=== PATIENT | male | born 1945 | race Caucasian/White ===

== ENCOUNTER → 2025-03-12 | Outpatient (REF) | payer MEDICARE ==
[2025-03-12 13:53] LABS: APPEARANCE, URINE CLEAR (CLEAR); BACTERIA, URINE AUTO NEGATIVE (NEGATIVE); BILIRUBIN, URINE AUTO NEGATIVE (NEGATIVE); BLOOD, URINE BLOOD NEGATIVE (NEGATIVE); GLUCOSE, URINE (UA) AUTO NEGATIVE (NEGATIVE); KETONE, URINE AUTO NEGATIVE (NEGATIVE); LEUKOCYTE ESTERASE, URINE AUTO NEGATIVE (NEGATIVE); MUCUS, URINE SMALL (NEGATIVE); NITRITE, URINE AUTO NEGATIVE (NEGATIVE); PROTEIN, URINE AUTO NEGATIVE (NEGATIVE); RBC, URINE AUTO 2 /HPF (0-3); SPECIFIC GRAVITY URINE AUTO 1.012 (1.002-1.035); SQUAMOUS EPITHELIAL CELL UR AU 0 /HPF (0-6); UROBILINOGEN, URINE AUTO 0.2 mg/dL (0.0-2.0); WBC, URINE AUTO 0 /HPF (0-3)
== END ==
LOC: M SMT 12:43
PROVIDERS: ATTEND Physician Assistant
DX: R31.0 Gross hematuria (principal)

== ENCOUNTER 2025-05-15 07:07 | Day surgery (SDC) | payer MEDICARE ==
[~2025-05-15] VITALS: Ht 185.4 cm; Wt 95.6 kg
[~2025-05-15 07:07] MED LIST: AMIO200T54 PO; AMLO1TAB24 PO; ATOR1TAB21 PO; ECOT81TA5 PO; ELIQ5TAB PO; LISI10TA22 PO; METO1TAB33 PO; PANT40TA29 PO; TAMS1CAP17 PO
[2025-05-15] MEDS ORDERED: LR 1,000 ML IV SCH (07:55)
[2025-05-15] MEDS ORDERED: LIDOCAINE 2% 100 MG/5 ML SDV (FOR ANES.) As Ordered ONE (10:59)
[2025-05-15] MEDS: ceFAZolin SOD 2 GM IV ONCE IV ONE (11:12)
[2025-05-15] MEDS ORDERED: ACETAMINOPHEN 1000MG/100ML IV BAG As Ordered ONE (11:18)
[2025-05-15] MEDS ORDERED: ONDANSETRON 4MG 2ML VIAL As Ordered ONE (11:18)
[2025-05-15] MEDS ORDERED: dexAMETHasone 4 MG/ML 1 ML VIAL As Ordered ONE (11:18)
[2025-05-15] MEDS ORDERED: FUROSEMIDE 100 MG/10 ML VIAL As Ordered ONE (11:54)
[2025-05-15] MEDS ORDERED: CEPH500C PO (12:29)
[2025-05-15] MEDS ORDERED: MEPERIDINE 25 MG/ML 1 ML VIAL IV PRN (12:30)
[2025-05-15] MEDS: HYDROMORPHONE HCL 0.5 MG/0.5 ML SYRINGE IV PRN (13:01)
[2025-05-15] MEDS ORDERED: ACETAMINOPHEN 325 MG TAB PO PRN (13:30)
[2025-05-15] MEDS: ONDANSETRON 4MG 2ML VIAL IV PRN (13:32)
[2025-05-15] MEDS ORDERED: OXYB5TAB14 PO (14:10)
[2025-05-15 14:35] VITALS: BP 153/72; TEMP 97.1; O2SAT 97
== END 2025-05-15 14:48 | disposition home or self-care (01) ==
LOC: M SDC 07:07
PROVIDERS: ATTEND Urology
DX: N40.1 Benign prostatic hyperplasia with lower urinary tract symptoms (principal); N13.8 Other obstructive and reflux uropathy; R31.0 Gross hematuria; I25.10 Atherosclerotic heart disease of native coronary artery without angina pectoris; Z95.5 Presence of coronary angioplasty implant and graft; I48.91 Unspecified atrial fibrillation; R35.0 Frequency of micturition; I10 Essential (primary) hypertension; E78.5 Hyperlipidemia, unspecified; D50.9 Iron deficiency anemia, unspecified
CPT/HCPCS: 52601; J0131; J0690; J1100; J1171; J1938; J2405; J3010